=== PATIENT | female | born 1990 | race African-American/Black ===

== ENCOUNTER 2018-06-03 23:09 | Emergency (ER) | payer MEDICAID ==
[~2018-06-03] VITALS: Ht 157.5 cm; Wt 91.0 kg
[~2018-06-03 23:09] MED LIST: MEDR10TA PO
[2018-06-04 00:01] LABS: CLARITY URINE CLOUDY (CLEAR); COLOR URINE YELLOW (YELLOW); KETONES URINE NEGATIVE (NEGATIVE); LEUKOCYTE ESTERASE URINE 3+ (NEGATIVE); NITRITE URINE NEGATIVE (NEGATIVE); OCCULT BLOOD URINE NEGATIVE (NEGATIVE); PH URINE 5.5 (4.5-8.0); PROTEIN URINE NEGATIVE (NEGATIVE); SPECIFIC GRAVITY URINE 1.022 (1.005-1.030); UROBILINOGEN URINE 0.2 E.U./dL (0.2-1.0)
[2018-06-04 02:14] LABS: BASOPHILS % 0.8 % (0.0-2.0); EOSINOPHILS % 1.5 % (0.0-5.0); HEMATOCRIT. 33.5 % (36.0-48.0); LYMPHOCYTES % 40.8 % (20.0-50.0); MEAN CORPUSCULAR HEMOGLOBIN 29.6 pg (28.0-32.0); MEAN CORPUSCULAR VOLUME 90.7 fL (81.0-99.0); MEAN PLATELET VOLUME 7.9 fl (7.4-10.4); MONOCYTES % 7.1 % (2.0-8.0); NEUTROPHILS % 49.8 % (40.0-76.0); PLATELET 332 x1000/uL (130-400); RED CELL DISTRIBUTION WIDTH 12.9 % (11.6-14.6)
[2018-06-04 02:18] LABS: CHLORIDE 108 mEq/L (98-107)
[2018-06-04] MEDS ORDERED: HYDROCODONE/ACETAMINOPHEN 5/325MG TABLET PO ONE (06:15)
[2018-06-04 06:39] VITALS: BP 122/70
== END 2018-06-04 06:54 | disposition home or self-care (01) ==
LOC: ER 23:09
DX: N39.0 Urinary tract infection, site not specified (principal); M54.9 Dorsalgia, unspecified; R11.0 Nausea; F12.10 Cannabis abuse, uncomplicated; Z98.890 Other specified postprocedural states
CPT/HCPCS: 36415; 76705; 76856; 81025; 99284

== ENCOUNTER 2018-09-20 13:13 | Emergency (ER) | payer MEDICAID ==
[~2018-09-20] VITALS: Ht 160 cm; Wt 91.0 kg
[2018-09-20] MEDS ORDERED: ONDANSETRON HCL 4MG/2ML INJ IV ONE (14:00)
[2018-09-20 14:16] LABS: BASOPHILS % 0.9 % (0.0-2.0); EOSINOPHILS % 1.8 % (0.0-5.0); HEMATOCRIT. 33.1 % (36.0-48.0); HEMOGLOBIN. 11.3 g/dL (12.0-16.0); LYMPHOCYTES % 33.7 % (20.0-50.0); MEAN CORPUSCULAR HEMOGLOBIN 30.6 pg (28.0-32.0); MEAN CORPUSCULAR VOLUME 89.9 fL (81.0-99.0); MEAN PLATELET VOLUME 7.7 fl (7.4-10.4); MONOCYTES % 8.4 % (2.0-8.0); NEUTROPHILS % 55.2 % (40.0-76.0); PLATELET 290 x1000/uL (130-400); RED BLOOD CELL COUNT 3.68 mill/uL (4.2-5.4); RED CELL DISTRIBUTION WIDTH 12.9 % (11.6-14.6)
[2018-09-20 14:21] LABS: CHLORIDE 112 mEq/L (98-107)
[2018-09-20] MEDS ORDERED: KETOROLAC 15MG/ML VIAL IV ONE (14:30)
[2018-09-20 17:15] LABS: CLARITY URINE CLEAR (CLEAR); COLOR URINE YELLOW (YELLOW); KETONES URINE TRACE (NEGATIVE); LEUKOCYTE ESTERASE URINE 1+ (NEGATIVE); NITRITE URINE NEGATIVE (NEGATIVE); OCCULT BLOOD URINE NEGATIVE (NEGATIVE); PH URINE 7.5 (4.5-8.0); PROTEIN URINE NEGATIVE (NEGATIVE); SPECIFIC GRAVITY URINE 1.017 (1.005-1.030); UROBILINOGEN URINE 0.2 E.U./dL (0.2-1.0)
[2018-09-20] MEDS ORDERED: NITROFURANTOIN 100MG M/M CAPSULE PO ONE (17:45)
[2018-09-20 18:09] VITALS: BP 117/64
== END 2018-09-20 18:11 | disposition home or self-care (01) ==
LOC: ER 13:13
DX: N30.00 Acute cystitis without hematuria (principal); R05 Cough; F12.10 Cannabis abuse, uncomplicated; Z98.890 Other specified postprocedural states
CPT/HCPCS: 36415; 71045; 80053; 81003; 81025; 83690; 85025; 96374; 96375; 99284; J1885; J2405; Z7610

== ENCOUNTER 2018-12-12 21:26 | Emergency (ER) | payer MEDICAID ==
[~2018-12-12] VITALS: Ht 157.5 cm; Wt 86.0 kg
[2018-12-12] MEDS ORDERED: KETOROLAC 30MG/ML VIAL IV STA (22:45)
[2018-12-12 23:32] LABS: BASOPHILS % 1.3 % (0.0-2.0); EOSINOPHILS % 0.9 % (0.0-5.0); HEMOGLOBIN. 12.1 g/dL (12.0-16.0); LYMPHOCYTES % 40.3 % (20.0-50.0); MEAN CORPUSCULAR HEMOGLOBIN 30.4 pg (28.0-32.0); MEAN CORPUSCULAR VOLUME 90.2 fL (81.0-99.0); MEAN PLATELET VOLUME 7.9 fl (7.4-10.4); MONOCYTES % 9.2 % (2.0-8.0); NEUTROPHILS % 48.3 % (40.0-76.0); PLATELET 349 x1000/uL (130-400); RED CELL DISTRIBUTION WIDTH 13.4 % (11.6-14.6)
[2018-12-12 23:36] LABS: CHLORIDE 102 mEq/L (98-107)
[2018-12-13 00:47] LABS: *AMPHETAMINES SCREEN URINE NEGATIVE (NEGATIVE); *BARBITURATES SCREEN URINE NEGATIVE (NEGATIVE); *BENZODIAZEPINES SCREEN URINE NEGATIVE (NEGATIVE); *COCAINE SCREEN URINE NEGATIVE (NEGATIVE); METHADONE URINE SCREEN NEGATIVE (NEGATIVE); OPIATES URINE SCREEN NEGATIVE (NEGATIVE)
[2018-12-13 00:48] LABS: CLARITY URINE CLEAR (CLEAR); COLOR URINE YELLOW (YELLOW); KETONES URINE NEGATIVE (NEGATIVE); LEUKOCYTE ESTERASE URINE 1+ (NEGATIVE); NITRITE URINE NEGATIVE (NEGATIVE); OCCULT BLOOD URINE NEGATIVE (NEGATIVE); PH URINE 5.5 (4.5-8.0); PHENCYCLIDINE URINE SCREEN NEGATIVE (NEGATIVE); PROTEIN URINE NEGATIVE (NEGATIVE)
[2018-12-13 00:49] LABS: CANNABINOID URINE SCREEN PRESUMTIVE POSITIVE (NEGATIVE)
[2018-12-13 01:58] VITALS: BP 119/70
== END 2018-12-13 01:58 | disposition home or self-care (01) ==
LOC: ER 21:26
DX: R10.84 Generalized abdominal pain (principal); M79.10 Myalgia, unspecified site; F12.10 Cannabis abuse, uncomplicated; Z98.890 Other specified postprocedural states
CPT/HCPCS: 36415; 71045; 80053; 80305; 81003; 81025; 83690; 85025; 93970; 96374; 99284; J1885

== ENCOUNTER 2019-08-12 09:22 | Emergency (ER) | payer MEDICAID ==
[~2019-08-12] VITALS: Ht 157.5 cm; Wt 87.0 kg
[2019-08-12] MEDS ORDERED: ONDANSETRON 4MG ODT PO ONE (11:00)
[2019-08-12 12:40] VITALS: BP 124/73
== END 2019-08-12 12:43 | disposition home or self-care (01) ==
LOC: ER 09:32
DX: M54.5 Low back pain (principal); R10.11 Right upper quadrant pain; R11.0 Nausea; Z98.890 Other specified postprocedural states
CPT/HCPCS: 76705; 81025; 99284; Q0162

== ENCOUNTER 2019-11-19 21:41 | Emergency (ER) | payer MEDICAID ==
[~2019-11-19] VITALS: Ht 160 cm; Wt 81.0 kg
[2019-11-19] MEDS ORDERED: ACETAMINOPHEN 325MG TABLET PO STA (23:01)
[2019-11-20 00:45] LABS: CHLORIDE 107 mEq/L (98-107)
[2019-11-20 00:54] LABS: EOSINOPHILS % 1.6 % (0.0-5.0); HEMATOCRIT. 36.7 % (36.0-48.0); HEMOGLOBIN. 12.6 g/dL (12.0-16.0); LYMPHOCYTES % 37.8 % (20.0-50.0); MEAN CORPUSCULAR HEMOGLOBIN 31.3 pg (28.0-32.0); MEAN CORPUSCULAR VOLUME 91.1 fL (81.0-99.0); MEAN PLATELET VOLUME 8.1 fl (7.4-10.4); MONOCYTES % 6.6 % (2.0-8.0); PLATELET 303 x1000/uL (130-400); RED BLOOD CELL COUNT 4.03 mill/uL (4.2-5.4); RED CELL DISTRIBUTION WIDTH 12.8 % (11.6-14.6)
[2019-11-20] MEDS ORDERED: IOHEXOL-350 100 ML BOTTLE ONE (04:02)
[2019-11-20] MEDS ORDERED: PROCHLORPERAZINE 10MG/2ML VIAL IV PRN (04:30)
[2019-11-20] MEDS ORDERED: MORPHINE SULFATE 4 MG/ML CPJ (NOT FOR IM USE) IV ONE (04:30)
[2019-11-20 05:15] VITALS: BP 121/74
== END 2019-11-20 06:00 | disposition home or self-care (01) ==
LOC: ER 21:41
DX: R06.00 Dyspnea, unspecified (principal); R06.02 Shortness of breath; R07.89 Other chest pain; D64.9 Anemia, unspecified
CPT/HCPCS: 36415; 71275; 80053; 81025; 83880; 84484; 85025; 85379; 93005; 96374; 96375; 99285; J2270; Q9967

== ENCOUNTER 2020-10-08 10:26 | Emergency (ER) | payer MEDICAID ==
[~2020-10-08] VITALS: Ht 160 cm; Wt 95.0 kg
[2020-10-08] MEDS ORDERED: ONDANSETRON HCL 4MG/2ML INJ IV ONE (11:45)
[2020-10-08] MEDS ORDERED: KETOROLAC 30MG/ML VIAL IV ONE (11:45)
[2020-10-08 12:08] LABS: BASOPHILS % 0.7 % (0.0-2.0); EOSINOPHILS % 1.4 % (0.0-5.0); HEMATOCRIT. 32.6 % (36.0-48.0); HEMOGLOBIN. 10.9 g/dL (12.0-16.0); LYMPHOCYTES % 35.2 % (20.0-50.0); MEAN CORPUSCULAR HEMOGLOBIN 30.1 pg (28.0-32.0); MEAN CORPUSCULAR VOLUME 89.9 fL (81.0-99.0); MEAN PLATELET VOLUME 7.6 fl (7.4-10.4); MONOCYTES % 7.7 % (2.0-8.0); PLATELET 310 x1000/uL (130-400); RED BLOOD CELL COUNT 3.63 mill/uL (4.2-5.4); RED CELL DISTRIBUTION WIDTH 12.9 % (11.6-14.6)
[2020-10-08 12:09] LABS: CLARITY URINE CLOUDY (CLEAR); COLOR URINE YELLOW (YELLOW); KETONES URINE NEGATIVE (NEGATIVE); LEUKOCYTE ESTERASE URINE NEGATIVE (NEGATIVE); NITRITE URINE NEGATIVE (NEGATIVE); OCCULT BLOOD URINE NEGATIVE (NEGATIVE); PROTEIN URINE NEGATIVE (NEGATIVE); SPECIFIC GRAVITY URINE 1.016 (1.005-1.030); UROBILINOGEN URINE 0.2 E.U./dL (0.2-1.0)
[2020-10-08 12:15] LABS: CHLORIDE 106 mEq/L (98-107)
[2020-10-08 12:18] LABS: PROTHROMBIN TIME 10.8 sec (9.6-11.0)
[2020-10-08 13:25] VITALS: BP 135/85
[2020-10-08] MEDS ORDERED: ONDA4TAB5 PO (13:31)
[2020-10-08] MEDS ORDERED: IBUP-2028 PO (13:31)
[2020-10-08] MEDS ORDERED: T3 PO (13:31)
== END 2020-10-08 13:54 | disposition home or self-care (01) ==
LOC: ER 10:26
DX: R10.2 Pelvic and perineal pain (principal); D64.9 Anemia, unspecified; Z98.890 Other specified postprocedural states
CPT/HCPCS: 36415; 74176; 80053; 81003; 81025; 83690; 85025; 85610; 93005; 96374; 96375; 99285; J1885; J2405

== ENCOUNTER 2021-09-15 08:16 | Emergency (ER) | payer MEDICAID, OTHER ==
[~2021-09-15] VITALS: Ht 165.1 cm; Wt 100.0 kg
[~2021-09-15 08:16] MED LIST changes: +ALBU18HF2 IH; +AZIT250T12 MT; +IBUP-2028 PO; -MEDR10TA PO; +MEDR10TA3 PO; +ONDA4TAB5 PO; +T3 PO
[2021-09-15 08:43] VITALS: BP 133/89
[2021-09-15] MEDS ORDERED: DEXAMETHASONE 4MG TABLET PO ONE (09:00)
[2021-09-15] MEDS ORDERED: ACETAMINOPHEN 325MG TABLET PO ONE (09:00)
[2021-09-15 09:43] LABS: MONOTEST NEGATIVE (NEGATIVE)
[2021-09-15] MEDS ORDERED: AZIT250T12 MT (10:07)
[2021-09-15] MEDS ORDERED: ACET-2708 MT (10:07)
[2021-09-15] MEDS ORDERED: AZITHROMYCIN 500 MG TABLET PO NR (10:15)
== END 2021-09-15 10:32 | disposition home or self-care (01) ==
LOC: ER 08:16
DX: J02.9 Acute pharyngitis, unspecified (principal); F12.10 Cannabis abuse, uncomplicated; J45.909 Unspecified asthma, uncomplicated; Z20.822 Contact with and (suspected) exposure to COVID-19; Z98.890 Other specified postprocedural states; Z79.899 Other long term (current) drug therapy
CPT/HCPCS: 86308; 87430; 99284; J8540

== ENCOUNTER 2021-12-02 13:53 | Emergency (ER) | payer MEDICAID ==
[~2021-12-02] VITALS: Ht 157.5 cm; Wt 92.0 kg
[~2021-12-02 13:53] MED LIST changes: +ACET-2708 MT; +MEDR10TA PO; -MEDR10TA3 PO
[2021-12-02] MEDS ORDERED: MAGNESIUM/ALUMINUM HYDROXIDE/SIMETHICONE 30ML UDC PO STA (14:50)
[2021-12-02] MEDS ORDERED: VISCOUS LIDOCAINE 2% 15 ML UDC PO STA (14:50)
[2021-12-02] MEDS ORDERED: METHOCARBAMOL 500MG TABLET PO ONE (15:00)
[2021-12-02] MEDS ORDERED: FAMOTIDINE 20MG TABLET PO ONE (15:00)
[2021-12-02] MEDS ORDERED: KETOROLAC 60MG/2ML VIAL IM ONE (15:00)
[2021-12-02 16:01] LABS: BASOPHILS % 0.9 % (0.0-2.0); CHLORIDE 105 mEq/L (98-107); EOSINOPHILS % 1.3 % (0.0-5.0); HEMATOCRIT. 34.8 % (36.0-48.0); HEMOGLOBIN. 11.3 g/dL (12.0-16.0); LYMPHOCYTES % 42.9 % (20.0-50.0); MEAN CORPUSCULAR HEMOGLOBIN 28.9 pg (28.0-32.0); MEAN PLATELET VOLUME 8.1 fl (7.4-10.4); MONOCYTES % 7.2 % (2.0-8.0); NEUTROPHILS % 47.7 % (40.0-76.0); PLATELET 325 x1000/uL (130-400); RED BLOOD CELL COUNT 3.91 mill/uL (4.2-5.4); RED CELL DISTRIBUTION WIDTH 13.3 % (11.6-14.6)
[2021-12-02 16:02] LABS: HCG SCREEN NEGATIVE
[2021-12-02 16:15] LABS: CLARITY URINE CLEAR (CLEAR); COLOR URINE YELLOW (YELLOW); KETONES URINE NEGATIVE (NEGATIVE); LEUKOCYTE ESTERASE URINE NEGATIVE (NEGATIVE); NITRITE URINE NEGATIVE (NEGATIVE); OCCULT BLOOD URINE NEGATIVE (NEGATIVE); PROTEIN URINE NEGATIVE (NEGATIVE); UROBILINOGEN URINE 0.2 E.U./dL (0.2-1.0)
[2021-12-02] MEDS ORDERED: SODIUM CHLORIDE 0.9% 1,000 ML IV ONE (16:45)
[2021-12-02] MEDS ORDERED: ACETAMINOPHEN 325MG TABLET PO ONE (17:30)
[2021-12-02] MEDS ORDERED: LIDOCAINE 5% PATCH TOP SCH (17:30)
[2021-12-02] MEDS ORDERED: METH-653 MT (17:51)
[2021-12-02] MEDS ORDERED: FAMO20TA8 MT (17:55)
[2021-12-02 19:11] VITALS: BP 134/66
== END 2021-12-02 19:12 | disposition home or self-care (01) ==
LOC: ER 14:24 → CANBEDREQ 19:02 → ER 19:12
DX: M79.602 Pain in left arm (principal); F12.10 Cannabis abuse, uncomplicated; D64.9 Anemia, unspecified; Z98.890 Other specified postprocedural states
CPT/HCPCS: 36415; 80053; 81003; 81025; 83605; 83690; 84703; 85025; 93005; 96360; 96372; 99284; J1885; J7030

== ENCOUNTER 2022-03-30 13:13 | Emergency (ER) | payer OTHER ==
[~2022-03-30] VITALS: Ht 157.5 cm; Wt 100.0 kg
[~2022-03-30 13:13] MED LIST changes: +FAMO20TA8 MT; +METH-653 MT
[2022-03-30 13:24] VITALS: BP 135/79
[2022-03-30] MEDS ORDERED: NAPR-1176 MT (16:51)
[2022-03-30] MEDS ORDERED: CYCL10TA21 MT (16:51)
[2022-03-30] MEDS ORDERED: LIDO700A15 TP (16:51)
[2022-03-30] MEDS ORDERED: KETOROLAC 30MG/ML VIAL IM ONE (17:00)
[2022-03-30] MEDS ORDERED: CYCLOBENZAPRINE 10MG TABLET PO ONE (17:00)
== END 2022-03-30 17:33 | disposition home or self-care (01) ==
LOC: ER 13:54
DX: M62.838 Other muscle spasm (principal); Z79.899 Other long term (current) drug therapy; Z98.890 Other specified postprocedural states
CPT/HCPCS: 81025; 96372; 99283; J1885

== ENCOUNTER 2022-09-22 09:49 | Emergency (ER) | payer OTHER ==
[~2022-09-22] VITALS: Ht 157.5 cm; Wt 95.5 kg
[~2022-09-22 09:49] MED LIST changes: +CYCL10TA21 MT; +LIDO700A15 TP; +NAPR-1176 MT
[2022-09-22 10:08] VITALS: BP 133/92
[2022-09-22 10:50] LABS: BASOPHILS % 0.7 % (0.0-2.0); EOSINOPHILS % 1.4 % (0.0-5.0); HEMATOCRIT. 32.6 % (36.0-48.0); HEMOGLOBIN. 11.3 g/dL (12.0-16.0); LYMPHOCYTES % 31.1 % (20.0-50.0); MEAN CORPUSCULAR HEMOGLOBIN 29.9 pg (28.0-32.0); MEAN CORPUSCULAR VOLUME 86.7 fL (81.0-99.0); NEUTROPHILS % 60.8 % (40.0-76.0); PLATELET 337 x1000/uL (130-400); RED BLOOD CELL COUNT 3.76 mill/uL (4.2-5.4)
[2022-09-22 11:03] LABS: CHLORIDE 105 mEq/L (98-107)
[2022-09-22] MEDS ORDERED: ONDANSETRON 4MG ODT PO ONE (11:15)
[2022-09-22] MEDS ORDERED: ACETAMINOPHEN 325MG TABLET PO ONE (11:15)
[2022-09-22] MEDS ORDERED: SUMATRIPTAN SUCCINATE 6MG/0.5ML VIAL SUBCUT ONE (12:30)
[2022-09-22] MEDS ORDERED: ACET-2708 MT (13:13)
[2022-09-22] MEDS ORDERED: IMIT50 MT (13:13)
[2022-09-22] MEDS ORDERED: ONDA4TAB50 MT (13:13)
== END 2022-09-22 14:01 | disposition home or self-care (01) ==
LOC: ER 09:49
DX: R07.89 Other chest pain (principal); R51.9 Headache, unspecified; F12.10 Cannabis abuse, uncomplicated; Z79.899 Other long term (current) drug therapy; Z98.890 Other specified postprocedural states
CPT/HCPCS: 36415; 71045; 80053; 84484; 85025; 99284